=== PATIENT | male | born 1950 | race Caucasian/White ===

== ENCOUNTER 2017-12-30 13:59 | Inpatient (IN) | payer BC ==
[2017-12-30] VITALS (8 sets, daily range): BP systolic 117–147; BP diastolic 80–94
[~2017-12-30] VITALS: Ht 182.9 cm; Wt 81.1 kg
--- NOTE | ~2017-12-30 | H ---
[facility] [place] [address] HISTORY AND PHYSICAL Name: JOSH VICK Room #: 170-6 ADM IN M.R.#: [id number] Admission: 12/30/17 Attend Phys: Buck Gresham MD, Discharge: Date of : 52 Report #: [id number] THIS REPORT FOR: //name// CC: Salvador Gresham DATE OF SERVICE: 12/30/2017 HISTORY OF PRESENT ILLNESS: The patient is a 67-year-old male well known to myself and also followed by [facility] followed, was seen by Dr. Wagner in the Emergency Room. Actually, I was called from Dr. Buck's office. The patient had some discomfort, some fairly intense pain in his midscapular region last night around 11:00 after a sexual encounter with his . This lasted for some time, was able to fall back asleep, but then woke up this morning with some discomfort. Initially, it was quite significant and he had some diaphoresis associated with this with minimal shortness of breath. There has been no history of this or warning of the signal until last night. He has had somewhat discomfort with some nonspecific EKG changes noted. Dr. Buck's office subsequently spoke with Dr. Buck who sent him to the Emergency Room. Initial troponin was 2.2 with minimal discomfort and some nonspecific EKG changes predominantly inferiorly. He has been compliant with medications. I saw him last month in the office and he was doing well, had one breakthrough. Then we had some difficulty with hypertension, he had one breakthrough of his AFib. He has been on flecainide 100 b.i.d. and diltiazem 240. We had stopped the Toprol or atenolol due to fatigue. We also stopped the Altace and Diovan and switched him to Edarbyclor 40/12.5. Simvastatin 20 is his other medication, Proscar 5 and a baby aspirin. PAST MEDICAL HISTORY: Positive for hypertension, hypercholesterolemia, strong family history of premature coronary disease, paroxysmal AFib, his CHADS score had been 1 and we had not really had any recurrence, but now with his age, his CHADS score would in fact be 2. PAST SURGICAL HISTORY: Hernia repair, nerve surgery, rotator cuff. FAMILY HISTORY: Father had premature coronary artery disease. SOCIAL HISTORY: He is a social alcohol user. No tobacco use. He is , couple cups of coffee a day. He does exercise. He rides an aerodyne regularly. He has one child. 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 ALLERGIES: SULFA. REVIEW OF SYSTEMS: Essentially negative except for stated above, some nocturia and some labile hypertension, which has actually improved with the Edarbyclor. [facility] [address] [place] [address] HISTORY AND PHYSICAL Name: JOSH VICK Room #: 170-6 [facility] ..#: [id number] Admission: 12/30/17 Attend Phys: Buck Gresham MD, Discharge: Date of : 52 Report #: [id number] PHYSICAL EXAMINATION: VITAL SIGNS: Blood pressure was 140/82, pulse is in the 60s and regular. HEENT: Eyes reveal xanthelasmas. Pharynx is clear. NECK: Shows preserved upstrokes without JVD or bruits. LUNGS: Clear. CARDIOVASCULAR: Regular rate and rhythm, S1, S2, without murmur. ABDOMEN: Soft. No HSM or abdominal bruit. EXTREMITIES: Reveal trace edema. Pulses diminished. NEUROLOGIC: Nonfocal. SKIN: Warm and dry without xanthoma or ulcer. MUSCULOSKELETAL: No gross joint deformity. ASSESSMENT: 1. Non-ST elevation myocardial infarction. 2. Hypertension. 3. Hypercholesterolemia. 4. Paroxysmal atrial fibrillation. 5. Degenerative joint disease. 6. Benign prostatic hypertrophy. RECOMMENDATIONS AND PLAN: We will proceed to the catheterization lab to delineate the anatomy. Minimal discomfort persists with no definite ST elevation, but nonspecific inferior lead changes. Heparin bolus and a full aspirin have been given, 80 mg of Lipitor. We will proceed to the catheterization lab for possible intervention. Risks, benefits, alternatives have been discussed. By: [id number] Buck Gresham MD, FACC /nt
--- NOTE | ~2017-12-30 | EKG ---
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1950 Requested By: Aliza Wagner Order Number: [id number] MD: Jose E Andres Measurements Intervals [place] Rate: 72 P: 42 DE: 223 QRS: -37 QRSD: 119 T: 54 QT: 426 QTc: 467 Interpretive Statements Sinus rhythm Prolonged DE interval Incomplete right bundle branch block Inferior infarct, old Compared to ECG 03/25/2006 14:37:28 Incomplete right bundle-branch block now present Sinus bradycardia no longer present Electronically Signed On 12-30-2017 16:47:23 CDT by Jose E Andres [email or web address] <ELECTRONICALLY SIGNED> By: Jose E Andres MD, [facility] 12/30/17 1647 1411 1411 Jose E Andres MD, [facility] /EPI
--- NOTE | ~2017-12-30 | EKG ---
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 : 1950 Requested By: Buck Gresham Order Number: [id number] MD: Jose E Andres Measurements Intervals [place] Rate: 65 P: 19 VA: 230 QRS: -54 QRSD: 121 T: 60 QT: 450 QTc: 468 Interpretive Statements Sinus rhythm Prolonged VA interval Inferior infarct, old Compared to ECG 12/30/2017 14:11:15 No significant change was found Electronically Signed On 12-31-2017 11:49:58 CDT by Jose E Andres [email or web address] <ELECTRONICALLY SIGNED> By: Jose E Andres MD, [facility] 12/31/17 1149 2143 2143 Jose E Andres MD, [facility] /EPI
[2017-12-30] MEDS ORDERED: PROSCAR 5MG TABL5 M1 PO (14:13)
[2017-12-30] MEDS ORDERED: FLECAINIDE ACET50 M1 PO (14:14)
[2017-12-30] MEDS ORDERED: ZOCOR20 MG PO (14:14)
[2017-12-30] MEDS ORDERED: CARDIZEM CD240 MG PO (14:15)
[2017-12-30] MEDS ORDERED: ASPIR 8181 MG PO (14:15)
[2017-12-30] MEDS ORDERED: EDARBYCLOR 40-1 EACH PO (14:15)
[2017-12-30 14:32] LABS: ABSOLUTE NEUTROPHILS 5.4 thou/uL (1.4-8.2); BASOPHILS 0.6 % (0.0-2.0); EOSINOPHILS 0.4 % (0.0-3.0); HEMATOCRIT 44.2 % (42.0-52.0); HEMOGLOBIN 15.9 gm/dL (14.0-18.0); MCH 32.8 pg (26.0-34.0); MCHC 35.9 g/dL (28.0-37.0); MCV 91.4 fL (80.0-100.0); MONOCYTES 8.2 % (1.0-8.0); PLATELET COUNT 244 thou/uL (150-400); POLYS 72.8 % (36.0-66.0); RBC 4.84 mil/uL (4.50-6.00); RDW 12.9 % (10.5-14.5); WBC 7.4 thou/uL (4.0-11.0)
[2017-12-30 14:39] LABS: CREATININE 1.3 mg/dL (0.7-1.3); POTASSIUM 3.1 mmol/L (3.5-5.1)
[2017-12-30 14:52] LABS: TROPONIN-I 2.23 ng/mL (<0.06)
[2017-12-30 15:12] LABS: APTT 32.7 Seconds (24.5-32.8); INR 1.1
[2017-12-31 04:24] VITALS: BP 120/73
[2017-12-31 04:55] LABS: HEMATOCRIT 40.1 % (42.0-52.0); HEMOGLOBIN 14.3 gm/dL (14.0-18.0); MCHC 35.7 g/dL (28.0-37.0); MCV 92.5 fL (80.0-100.0); RBC 4.34 mil/uL (4.50-6.00)
[2017-12-31 05:16] LABS: ANION GAP 10 mmol/L (7-16); BUN 19 mg/dL (7-18); CALCIUM 7.7 mg/dL (8.5-10.1); CHLORIDE 106 mmol/L (98-107); CHOLESTEROL 146 mg/dL (<200); CO2 23 mmol/L (21-32); CREATININE 1.1 mg/dL (0.7-1.3); GLUCOSE 107 mg/dL (74-106); HDL CHOLESTEROL 59 mg/dL (>40); LDL CHOLESTEROL 78 mg/dL (<100); POTASSIUM 3.7 mmol/L (3.5-5.1); SODIUM 139 mmol/L (136-145); TC:HDL 2.5 Ratio (Not establshd); TRIGLYCERIDE 47 mg/dL (<150); VLDL 9 mg/dL (<40)
[2017-12-31 05:24] LABS: SERUM ASSESSMENT Clear
[2017-12-31 05:25] LABS: TROPONIN-I 2.01 ng/mL (<0.06)
[2017-12-31 07:45] VITALS: BP 125/69
[2017-12-31 12:23] VITALS: BP 142/71
[2017-12-31 17:39] VITALS: BP 117/75
[2017-12-31 19:56] VITALS: BP 111/73
[2018-01-01 04:20] VITALS: BP 116/76
[2018-01-01 08:20] VITALS: BP 115/76
[2018-01-01] MEDS ORDERED: MULTAQ 400 MG400 MG PO (09:26)
[2018-01-01] MEDS ORDERED: TOPROL XL25 MG PO (09:26)
[2018-01-01] MEDS ORDERED: LIPITOR40 MG PO (09:26)
[2018-01-01] MEDS ORDERED: BRILINTA90 MG PO (09:26)
[2018-01-01 11:49] VITALS: BP 109/71
[2018-01-01 16:15] VITALS: BP 111/74
[2018-01-01 17:21] VITALS: BP 111/74
== END 2018-01-01 17:45 | disposition home or self-care (01) | DRG 247 ==
LOC: ER 13:59 → EROBS 15:11 → 2N 18:23
PROVIDERS: Emergency Medicine; Internal Medicine Cardiovascular Disease
PROC: 027034Z Dilation of Coronary Artery, One Artery with Drug-eluting Intraluminal Device, Percutaneous Approach (ICD-10-PCS; principal; 2017-12-30)
PROC: 4A023N7 Measurement of Cardiac Sampling and Pressure, Left Heart, Percutaneous Approach (ICD-10-PCS; principal; 2017-12-30)
PROC: B2111ZZ Fluoroscopy of Multiple Coronary Arteries using Low Osmolar Contrast (ICD-10-PCS; principal; 2017-12-30)
DX: I21.4 Non-ST elevation (NSTEMI) myocardial infarction (principal); I10 Essential (primary) hypertension; E87.6 Hypokalemia; E78.00 Pure hypercholesterolemia, unspecified; I25.10 Atherosclerotic heart disease of native coronary artery without angina pectoris; I48.0 Paroxysmal atrial fibrillation; M19.90 Unspecified osteoarthritis, unspecified site; N40.0 Benign prostatic hyperplasia without lower urinary tract symptoms; E78.5 Hyperlipidemia, unspecified; Z95.1 Presence of aortocoronary bypass graft; Z82.49 Family history of ischemic heart disease and other diseases of the circulatory system; Z88.1 Allergy status to other antibiotic agents; Z88.2 Allergy status to sulfonamides; Z79.82 Long term (current) use of aspirin; Z79.899 Other long term (current) drug therapy
CPT/HCPCS: 10194

== ENCOUNTER → 2018-08-07 | Outpatient (CLI) | payer BC ==
[~2018-08-07] MED LIST: ASPIR 8181 MG PO; BRILINTA90 MG PO; CARDIZEM CD240 MG PO; EDARBYCLOR 40-1 EACH PO; FLECAINIDE ACET50 M1 PO; LIPITOR40 MG PO; MULTAQ 400 MG400 MG PO; PROSCAR 5MG TABL5 M1 PO; TOPROL XL25 MG PO; ZOCOR20 MG PO
[2018-08-07 08:14] LABS: HEMATOCRIT 45.4 % (42.0-52.0); HEMOGLOBIN 16.2 gm/dL (14.0-18.0); MCH 33.8 pg (26.0-34.0); MCHC 35.6 g/dL (28.0-37.0); MCV 94.8 fL (80.0-100.0); RBC 4.78 mil/uL (4.50-6.00); RDW 13.5 % (10.5-14.5); WBC 6.7 thou/uL (4.0-11.0)
[2018-08-07 08:32] LABS: ALBUMIN 3.9 g/dL (3.4-5.0); CALCIUM 8.6 mg/dL (8.5-10.1); CREATININE 1.3 mg/dL (0.7-1.3); POTASSIUM 3.6 mmol/L (3.5-5.1); TOTAL BILIRUBIN 0.8 mg/dL (<0.1-1.0); TOTAL PROTEIN 6.9 g/dL (6.4-8.2)
== END ==
LOC: CAT 07:51
PROVIDERS: Internal Medicine Cardiovascular Disease
DX: I25.10 Atherosclerotic heart disease of native coronary artery without angina pectoris (principal); I48.91 Unspecified atrial fibrillation; K76.89 Other specified diseases of liver

== ENCOUNTER 2018-08-11 06:36 | Observation (INO) | payer BC ==
[~2018-08-11] VITALS: Ht 182.9 cm; Wt 77.1 kg
[2018-08-11] VITALS (15 sets, daily range): BP systolic 119–153; BP diastolic 43–88
--- NOTE | ~2018-08-11 | P ---
[facility] [place] [address] PROCEDURE REPORT Name: JOSH VICK Room #: 218-P [facility].#: [id number] Admission: 08/11/18 Attend Phys: Lee Guillermo MD Discharge: Date of : 52 Report #: [id number] THIS REPORT FOR: //name// CC: Salvador Guillermo DATE OF SERVICE: 08/11/2018 PREOPERATIVE DIAGNOSIS: Atrial fibrillation/atrial flutter. POSTOPERATIVE DIAGNOSIS: Atrial fibrillation/atrial flutter. The patient is a 68-year-old with atrial fibrillation/atrial flutter despite antiarrhythmic drugs, here is for an ablation. PROCEDURES PERFORMED: 1. Supraventricular tachycardia ablation, CPT code 30235. 2. Left atrial pacing and recording, CPT code 46114. 3. Intracardiac echocardiogram, CPT code 28643. 4. 3D mapping, CPT code 16929. 5. Transseptal puncture, CPT code 26233. ANESTHESIA: The patient underwent general anesthesia. No anesthesia related complications. Of note, the patient was bradycardic and somewhat hypotensive with sedation and therefore required vasopressors to maintain his blood pressure throughout the case. DESCRIPTION OF PROCEDURE: The patient underwent informed consent. We discussed the details of the procedure including the risks, which include, but not limited to, bleeding, vascular damage as well as stroke or NH. The patient understood these risks and is willing to proceed. The patient was brought to the EP laboratory in a fasting and unsedated state, prepped and draped in a sterile fashion. I obtained access in the right femoral vein x 3, placing an 8-Zimbabwean, 9-Zimbabwean and 7-Zimbabwean short sheaths using the modified Seldinger technique. Next, under fluoroscopy, a decapolar catheter was placed easily in the coronary sinus. Given his bradycardia, we used this to pace the patient throughout the case. The ice catheter was placed in the right atrium. At baseline, the patient was in sinus bradycardia with what appeared to be a low atrial rhythm with an atrial cycle length of 1310 milliseconds, HI interval 200 milliseconds, QRS duration 100 milliseconds, QT interval 535 milliseconds. Next, using intracardiac ultrasound, I evaluated the interatrial septum. The interatrial septum was quite thickened and there was a small area that appeared to be thin that was pretty anterior. I spent about 45 minutes trying to perform transseptal. The patient had been systemically heparinized and using an SL1 sheath and a [place] needle, we attempted to find a thinner part of the [address] [address] PROCEDURE REPORT Name: JOSH VICK Thiago Room #: 218-P [facility] M.R.#: [id number] Admission: 08/11/18 Attend Phys: Lee Guillermo MD Discharge: Date of : 52 Report #: [id number] interatrial septum. Using my standard needle, I could not really get to this location, so I then switched to the larger curved [place] needle. Using this needle, I could find this thinner area of the fossa. However, I was very careful to avoid sticking too anteriorly up obviously to avoid the aorta. Eventually, I found finished part of the septum and I could demonstrate that the tip of the needle would cross into the left atrium. I advanced the needle at this location and it did appear to cross the septum. It appeared to cross a little higher than I wanted. It appeared that I was now likely in a PFO. I was able to advance the wire into the left atrium and into the left superior pulmonary vein; however, I attempted to advance at this location and again, the septum was very, very thick at this location and attempts to advance were unsuccessful and actually resulted in some bradycardia and hypotension. Given this challenging anatomy, I decided to not proceed with a transseptal at this location and decided to abandon the AFib ablation due to the challenging anatomy. I pulled my transseptal sheath and wire into the right atrium using intracardiac ultrasound. I verified there was no pericardial effusion at this point. ATRIAL FLUTTER ABLATION: I decided to proceed with a right-sided atrial flutter ablation. I placed an 8-Zimbabwean ramp sheath and a emazeTouch ThermoCool ablation catheter into the right atrium. I also placed a [employer] live wire ablation catheter into the right atrium. Pacing was performed throughout the ablation as the patient remained bradycardic. We performed ablation at 35-40 zabala along the isthmus. I performed a total of 2 ablation lines and the patient developed clear bidirectional block. Prior to the ablation, the transisthmus conduction time was approximately 80 milliseconds. Post ablation, the transisthmus conduction time was now 155 milliseconds and there were double potentials along the line of ablation of 140 milliseconds. As such, post-ablation EP study was performed. Post-ablation AV block was noted at 510 milliseconds. I tried giving single atrial extrastimuli and with this, the patient would have periods of hypotension. Therefore, I decided against further EP study. Post ablation, the patient was in sinus rhythm. We did pace the patient initially at 600 milliseconds, decreased it gradually to 1000 milliseconds. After a few minutes, we came off and his sinus rate was 1195 milliseconds, HI interval 116 milliseconds, QRS duration 95 milliseconds, QT interval 535 milliseconds. Using intracardiac ultrasound again, I verified there was no pericardial effusion. As such, all catheters and sheaths were pulled and hemostasis was obtained. The patient awoke neurologically and hemodynamically intact. No complications. No significant bleeding. CONCLUSIONS: 1. Successful atrial flutter ablation with demonstration of bidirectional block. 2. Unsuccessful atrial fibrillation ablation due to interatrial septal hypertrophy with inability to cross the interatrial septum with the sheath despite crossing with a guidewire into the left atrium. [facility] [address] [place] [address] PROCEDURE REPORT Name: BOWEN VICKJIMY Das Room #: 218-P [facility].#: [id number] Admission: 08/11/18 Attend Phys: Lee Guillermo MD Discharge: Date of : 52 Report #: [id number] 3. Evidence of sick sinus syndrome. PLAN: 1. The patient will be monitored in the CCU overnight. 2. We will continue with amiodarone therapy for the time being. 3. Consideration to possible pacemaker implantation in the future may be warranted, especially if we decide to transition from amiodarone to sotalol therapy. 4. Possible future ablation may need to be done by a surgical approach. By: 1141 2309 Lee Guillermo MD /nt
[2018-08-11] MEDS ORDERED: EFFIENT10 MG PO (07:17)
[2018-08-11] MEDS ORDERED: ELIQUIS5 MG PO (07:18)
[2018-08-11 07:20] LABS: ABSOLUTE NEUTROPHILS 3.8 thou/uL (1.4-8.2); BASOPHILS 0.6 % (0.0-2.0); EOSINOPHILS 1.6 % (0.0-3.0); HEMOGLOBIN 16.3 gm/dL (14.0-18.0); LYMPHOCYTES 26.2 % (24.0-44.0); MCH 32.8 pg (26.0-34.0); MCHC 34.7 g/dL (28.0-37.0); MCV 94.5 fL (80.0-100.0); MONOCYTES 10.3 % (1.0-8.0); PLATELET COUNT 266 thou/uL (150-400); POLYS 61.3 % (36.0-66.0); RBC 4.97 mil/uL (4.50-6.00); RDW 13.6 % (10.5-14.5); WBC 6.2 thou/uL (4.0-11.0)
[2018-08-11 07:23] LABS: CALCIUM 9.1 mg/dL (8.5-10.1); CREATININE 1.4 mg/dL (0.7-1.3); POTASSIUM 3.5 mmol/L (3.5-5.1)
[2018-08-11 07:26] LABS: INR 1.1; PROTIME 11.2 Seconds (9.3-11.4)
[2018-08-11 07:28] LABS: ALBUMIN 3.9 g/dL (3.4-5.0); TOTAL BILIRUBIN 0.8 mg/dL (<0.1-1.0); TOTAL PROTEIN 7.3 g/dL (6.4-8.2)
[2018-08-11] MEDS ORDERED: PACERONE 200 M200 M1 PO (07:28)
[2018-08-11] MEDS ORDERED: BENICAR40 MG PO (07:29)
[2018-08-12 00:15] VITALS: BP 124/74
[2018-08-12 04:30] VITALS: BP 129/72
[2018-08-12 08:30] VITALS: BP 128/71
[2018-08-12 10:06] VITALS: BP 128/71
== END 2018-08-12 10:23 | disposition home or self-care (01) ==
LOC: CATH 06:36 → 2N 12:51 → CATH 13:07 → 2N 08-12 10:23
PROVIDERS: ADMIT Internal Medicine Cardiovascular Disease
DX: I48.91 Unspecified atrial fibrillation (principal); I48.92 Unspecified atrial flutter; Z79.82 Long term (current) use of aspirin
CPT/HCPCS: 62110; 62900; 65020; 65040; 70005

== ENCOUNTER → 2018-11-13 | Outpatient (CLI) | payer BC ==
[~2018-11-13] VITALS: Ht 182.9 cm; Wt 77.1 kg
[~2018-11-13] MED LIST changes: +BENICAR40 MG PO; +EFFIENT10 MG PO; +ELIQUIS5 MG PO; +PACERONE 200 M200 M1 PO
[2018-11-13 13:30] VITALS: BP 164/86
--- NOTE | 2018-11-28 16:45 | P ---
[facility] [place] [address] PROCEDURE REPORT Name: JOSH VICK Thiago [id number] Admission: 11/13/18 ������������������ Attend Phys: Lee Guillermo MD Discharge: ������������������ Date of : 52 Report #: [id number] THIS REPORT FOR: //name// CC: Salvador Guillermo DATE OF SERVICE: 11/24/2018 PREOPERATIVE DIAGNOSIS: Atrial fibrillation. POSTOPERATIVE DIAGNOSIS: Atrial fibrillation. PROCEDURES PERFORMED: Implantable loop recorder insertion. PROCEDURE: The patient underwent informed consent. He was prepped and draped in a sterile fashion. I injected lidocaine at the site of the procedure. An incision was made. The device was injected under the skin and a single layer of suture was placed and surgical glue was placed to the outer skin layer. There were no complications and no significant bleeding. The implanted device was a [employer] Confirm model #3500, serial number [id number]. CONCLUSIONS: Successful loop recorder insertion. ��������������������������������������������� <ELECTRONICALLY SIGNED> ���������������������������������������� By: Lee Guillermo MD ��������������������������������������������� 11/28/18 1645 1510 0429 Lee Guillermo MD /nt
== END | disposition home or self-care (01) ==
LOC: CATH 07:22
DX: I48.91 Unspecified atrial fibrillation (principal); I10 Essential (primary) hypertension; I21.4 Non-ST elevation (NSTEMI) myocardial infarction; I25.10 Atherosclerotic heart disease of native coronary artery without angina pectoris; E78.00 Pure hypercholesterolemia, unspecified; G62.9 Polyneuropathy, unspecified; Z82.49 Family history of ischemic heart disease and other diseases of the circulatory system; Z98.890 Other specified postprocedural states; Z79.899 Other long term (current) drug therapy; Z88.8 Allergy status to other drugs, medicaments and biological substances; Z79.01 Long term (current) use of anticoagulants

== ENCOUNTER → 2020-08-05 | Outpatient (CLI) | payer OTHER | LOC: SJCVCIMAG 10:55 | PROVIDERS: ATTEND Internal Medicine Cardiovascular Disease | DX: I08.3 Combined rheumatic disorders of mitral, aortic and tricuspid valves (principal); I25.10 Atherosclerotic heart disease of native coronary artery without angina pectoris; I48.0 Paroxysmal atrial fibrillation ==

== ENCOUNTER → 2020-09-23 | Outpatient (CLI) | payer OTHER | LOC: SJCVC 13:51 | PROVIDERS: ATTEND Internal Medicine Cardiovascular Disease | DX: R00.1 Bradycardia, unspecified (principal); I48.0 Paroxysmal atrial fibrillation; I48.3 Typical atrial flutter; I25.10 Atherosclerotic heart disease of native coronary artery without angina pectoris; I10 Essential (primary) hypertension; I25.2 Old myocardial infarction; E78.00 Pure hypercholesterolemia, unspecified; Z82.49 Family history of ischemic heart disease and other diseases of the circulatory system; Z79.82 Long term (current) use of aspirin; Z79.899 Other long term (current) drug therapy ==

== ENCOUNTER → 2020-10-14 | Outpatient (CLI) | payer OTHER | LOC: SJCVC 08:56 | PROVIDERS: ATTEND Internal Medicine Cardiovascular Disease | DX: I48.0 Paroxysmal atrial fibrillation (principal); I25.10 Atherosclerotic heart disease of native coronary artery without angina pectoris; I10 Essential (primary) hypertension; R00.1 Bradycardia, unspecified; Z88.2 Allergy status to sulfonamides; Z79.82 Long term (current) use of aspirin; Z79.899 Other long term (current) drug therapy; Z72.89 Other problems related to lifestyle ==

== ENCOUNTER → 2021-03-25 | Outpatient (CLI) | payer OTHER | LOC: SJCVC 14:31 | PROVIDERS: ATTEND Internal Medicine Cardiovascular Disease | DX: I25.10 Atherosclerotic heart disease of native coronary artery without angina pectoris (principal); I48.0 Paroxysmal atrial fibrillation; I10 Essential (primary) hypertension; E78.00 Pure hypercholesterolemia, unspecified; Z72.89 Other problems related to lifestyle; Z79.899 Other long term (current) drug therapy; Z79.82 Long term (current) use of aspirin; Z88.2 Allergy status to sulfonamides ==